=== PATIENT | female | born 1930 | race Caucasian/White ===

== ENCOUNTER 2017-06-21 15:40 | Observation (INO) | payer OTHER, MEDICARE ==
[~2017-06-21] VITALS: Ht 161.3 cm; Wt 62.4 kg
[~2017-06-21 15:40] MED LIST: AMLODIPINE BESYL5 MG PO; ASPIR-LOW81 MG PO; ATORVASTATIN CA20 MG PO; CALCIUM + D3 E1 EACH PO; CALCIUM 500 +1 EACH PO; CLOPIDOGREL75 MG PO; COUMADIN5 MG PO; COUMADIN6 MG PO; FUROSEMIDE20 MG PO; HYDROCHLOROTH12.5 M3 PO; IRON325 M1 PO; JANTOVEN4 MG PO; KLOR-CON 1010 ME1 PO; KLOR-CON M1010 MEQ PO; LIPITOR20 MG PO; LIPITOR40 MG PO; LISINOPRIL10 MG PO; LISINOPRIL2.5 MG PO; LISINOPRIL5 MG PO; MAGNESIUM250 MG PO; MECLIZINE HCL12.5 M1 PO; METOPROLOL SUCC25 MG PO; METOPROLOL TART25 MG PO; OS-CAL 500+D31 EACH PO; PROTONIX20 MG PO; SIMVASTATIN40 MG PO; WARFARIN SODIUM5 MG PO; WARFARIN SODIUM6 MG PO; ZESTRIL2.5 MG PO
[2017-06-21 16:26] LABS: HEMATOCRIT 36.5 % (36.0-46.0); HEMOGLOBIN 12.2 G/DL (11.9-15.5); MCHC 33.4 G/DL (30.0-36.0); MCV 92.9 FL (83-99); PLATELET COUNT 214 K/uL (156-360); RBC DIS.WIDTH-SD 44.9 % (39-53); RED BLOOD COUNT 3.93 M/uL (3.80-5.20); WHITE BLOOD COUNT 6.5 K/uL (4.1-10.2)
[2017-06-21 16:38] LABS: CHLORIDE 104 mEq/L (99-109); POTASSIUM 4.1 mEq/L (3.7-5.4); SODIUM 143 mEq/L (136-147)
[2017-06-21 16:40] LABS: GLUCOSE 145 mg/dL (70-99)
[2017-06-21 16:44] LABS: CREATININE 0.9 mg/dL (0.6-1.3); GFR ESTIMATE (CALCULATED) > 59 mL/min/
[2017-06-21 16:45] LABS: UREA NITROGEN (BUN) 13 mg/dL (9-23)
[2017-06-21 16:49] LABS: TROP-I INTERPRETATION NEGATIVE; TROPONIN-I < 0.01 ng/mL (0.0-0.30)
[2017-06-21] MEDS ORDERED: AMLODIPINE BES2.5 MG PO (18:56)
[2017-06-21] MEDS ORDERED: ASPIR 8181 M1 PO (18:56)
[2017-06-21 20:47] VITALS: BP 167/69
[2017-06-21 23:00] LABS: INTER. NORMALIZED RATIO 2.4
[2017-06-21 23:34] VITALS: BP 126/57
[2017-06-22 00:50] LABS: TROP-I INTERPRETATION NEGATIVE; TROPONIN-I 0.01 ng/mL (0.0-0.30)
[2017-06-22 03:19] VITALS: BP 132/60
[2017-06-22 05:29] LABS: INTER. NORMALIZED RATIO 2.2
[2017-06-22 05:46] LABS: TROP-I INTERPRETATION NEGATIVE; TROPONIN-I 0.01 ng/mL (0.0-0.30)
[2017-06-22 09:00] VITALS: BP 130/57
[2017-06-22 12:16] VITALS: BP 151/67
[2017-06-22 13:45] LABS: APPEARANCE CLEAR ((CLEAR)); BILIRUBIN NEGATIVE; BLOOD NEGATIVE; COLOR YELLOW ((YELLOW)); GLUCOSE (STRIP) NEGATIVE; KETONES NEGATIVE; LEUKOCYTES NEGATIVE; NITRITE NEGATIVE; PROTEIN (STRIP) NEGATIVE; SPECIFIC GRAVITY 1.008 (1.000-1.030); UCUL ADDED? NO; UROBILINOGEN 0.2 MG/DL (0.2-1.0)
[2017-06-22] MEDS ORDERED: ASPIR-LOW81 MG PO (14:18)
== END 2017-06-22 15:45 | disposition home or self-care (01) ==
LOC: EME 15:40 → EDOF 19:42 → 5WEST 19:42 → EDOF 19:42 → ENRESERV 19:44 → 5WEST 20:36
PROVIDERS: Hospitalist; Nurse Practitioner Adult Health
DX: R07.9 Chest pain, unspecified (principal); R94.31 Abnormal electrocardiogram [ECG] [EKG]; I11.0 Hypertensive heart disease with heart failure; I50.9 Heart failure, unspecified; R68.83 Chills (without fever); R51 Headache; I25.10 Atherosclerotic heart disease of native coronary artery without angina pectoris; Z95.5 Presence of coronary angioplasty implant and graft; I25.5 Ischemic cardiomyopathy; I48.2 Chronic atrial fibrillation; E78.5 Hyperlipidemia, unspecified; R01.1 Cardiac murmur, unspecified; I35.0 Nonrheumatic aortic (valve) stenosis; Z85.828 Personal history of other malignant neoplasm of skin; Z90.710 Acquired absence of both cervix and uterus; Z79.82 Long term (current) use of aspirin; Z79.01 Long term (current) use of anticoagulants
CPT/HCPCS: 71046; 80048; 81003; 84484; 85027; 85610; 85652; 93005; 99281; 99285; G0378; J1644